=== PATIENT | male | born 1955 | race Caucasian/White ===

== ENCOUNTER 2020-01-07 00:45 | Day surgery (SDC) | payer MEDICARE, SELFPAY ==
[2019-12-29 14:27] VITALS: BMI 29.0
[2020-01-07] MEDS: LACTATED RINGERS 1,000 ML 30 ML IV CONT ×2 (08:05→11:05)
[2020-01-07 08:20] VITALS: BP 131/89; PULSE 74; RESP 16; TEMP 36.2; O2SAT 99
--- NOTE | 2020-01-07 08:34 | WPDANESEPPF ---
Anes - Initial Pre Proc Eval Procedure: Operation Date: 01/07/20 10:00 Proposed Procedures p Repair Incarcerated Umbilical Hernia, Possible Mesh - Russ Gipson MD Date/Time: 01/07/20 08:34 Surgeon: Russ Gipson MD Pre Op Diagnosis: incarcerated umbilical hernia Patient Data Age: 64 Gender: M Height: 1.68 m Weight: 80.5 kg Allergies Allergy/AdvReac Type Severity Reaction Status Date / Time No Known Allergies Allergy Verified 01/07/20 07:48 Home Medications Medication Instructions Recorded Confirmed Type hydrocodone-acetaminophen [[place]] 1 tablet PO Q6H PRN #14 tablet 12/27/19 01/07/20 Rx rosuvastatin 10 mg tablet 10 mg PO DAILY 12/28/19 01/07/20 History acetaminophen [Tylenol] 325 mg PO ONCE PRN 12/29/19 01/07/20 History Patient hx anesthesia problems: none Family hx anesthesia problems: none PMFSH Social History Social History Smoking status: Former smoker Smoking end date: 03/01/19 Alcohol intake: current Gender identity (if verbalized by the patient): Male Anes - Eval Final PreProcedure Day of Procedure 01/07/20 08:34 Patient weight: overweight Heart: regular rate and rhythm Lungs: clear to auscultation and normal air movement Airway: Mallampati scale class II Neurological: alert and oriented Last oral intake: >/= 8 hours ASA classification: II Emergent: no Anesthetic plan: proceed Anesthesia type and monitoring: general ETT Informed Consent: The patient's anesthetic plan and its attendant risks and benefits were discussed with the patient/family/POA. Questions were solicited and answers provided to the satisfaction of the patient/family/POA.
--- NOTE | 2020-01-07 09:46 | WPDHPUPDATE1 ---
History and Physical Update Update Date/Time: 01/07/20 09:46 History and Physical has been reviewed, including an updated exam of the patient. There are NO changes in the patient's condition. Risks, benefits, and alternatives have been discussed and questions answered. Patient agrees to proceed with procedure.
[2020-01-07] MEDS: ceFAZolin 2 GM/D5W 50 ML 2 GM/50 ML BAG IVPB (10:06)
--- NOTE | 2020-01-07 11:01 | P.OP_ITS ---
Procedure Note - Detailed Date of procedure: 01/07/20 Pre-op diagnosis: incarcerated umbilical hernia Incarcerated umbilical hernia Post-op diagnosis: same Procedure performed: Repair incarcerated umbilical hernia Description of procedure: Patient was taken to the operating room and IV sedation was administered. Prep and drape was carried out. The proposed incision along the upper margin of the umbilicus was marked on the skin. Local anesthetic was infiltrated into the skin and the deeper subcutaneous tissues. Incision was made and dissection was carried down through the skin and to the hernia sac. The hernia sac was hardened, edematous and chronically inflamed due to the incarcerated soft tissue within the sac. The sac was then dissected free from the umbilical skin and the surrounding subcutaneous tissues. It was dissected down to its neck. Additional local anesthetic was infiltrated into the neck and the fascia surrounding the neck of the hernia sac. The sac was then amputated at its neck. The incarcerated properitoneal fat in the hernia sac was also amputated at the fascial level. The sac and the incarcerated contents were discarded. The subcutaneous was undermined around the hernia d efect. Additional local was infiltrated around the fascia. The hernia defect was closed with [id number] mattress sutures of 0 Ethibond. The umbilical skin was tacked to the fascia with 3 0 Vicryl suture. The subcutaneous was closed with 3 0 Vicryl. Subcuticular interrupted 4 O Vicryl skin stitches were placed. The skin was then closed with running 4 0 Monocryl subcuticular suture. Wound was dressed with Exofin surgical adhesive. The patient was awakened and taken to recovery in good condition. Counts were correct x2. Anesthesia: GETA and local (0.5% Marcaine with Exparel) Surgeon: Russ Gipson MD Survey Superintendent: Abdirashid LIEBERMAN Estimated blood loss (mL): 5 Drains: No Packing: No Pathology: none sent Complications: None Condition: stable Disposition: PACU Findings: 10 millimeter hernia defect closed primarily due to the acute and chronic inflammation of this contaminated case. The defect was small and the surrounding fascial tissue was of good integrity.
[2020-01-07 11:05] VITALS: BP 148/99; PULSE 112; RESP 14; TEMP 36.4; O2SAT 100
[2020-01-07 11:15] VITALS: BP 143/94; PULSE 110; RESP 22; O2SAT 100
[2020-01-07 11:30] VITALS: BP 139/89; PULSE 99; RESP 20; O2SAT 98
[2020-01-07 11:36] VITALS: BP 131/80; PULSE 94; RESP 16
[2020-01-07 12:10] VITALS: BP 128/75; PULSE 83; RESP 16
--- NOTE | 2020-01-07 12:11 | SUR.PHASEII ---
ABDOMEN ENLARGED, SOFT. PT STATES THAT IT IS HIS BASELINE.
== END 2020-01-07 12:15 | disposition home or self-care (01) ==
PROVIDERS: PCP Internal Medicine; Visit Provider Surgery
PROC: (CPT 49587; principal; 2020-01-07 10:00)
DX: K42.0 Umbilical hernia with obstruction, without gangrene (principal); E78.00 Pure hypercholesterolemia, unspecified; Z87.891 Personal history of nicotine dependence
CPT/HCPCS: 49587; C9290; J0690; J1100; J2250; J2405; J2704; J2710; J3010; J7120

== ENCOUNTER 2020-10-18 11:08 | Emergency (ER) | payer MEDICARE, SELFPAY ==
--- NOTE | ~2020-10-18 | XR_ITS ---
XR lumbar spine min 4V DATE: 10/18/2020 11:51 INDICATION: Fell down 3 stairs. Centralized low back pain. TECHNIQUE: AP, lateral, bilateral oblique and coned lateral lumbosacral views COMPARISON: 12/27/2019 CT abdomen pelvis FINDINGS: There is interval mild anterior wedge compression fracture deformity of T12 since 12/27/2019 . Diffuse osteopenia. There is chronic burst fracture deformity of L2. There is severe degenerative disc disease and minimal retrolisthesis at L5-S1. Moderate degenerative disc disease at L2-3, L4-5. No spondylolysis. Grade 1 anterolisthesis at L4-5 due to degenerative changes at apophyseal joints. The sacroiliac joints are intact. IMPRESSION: New T12 compression fracture deformity since 12/27/2019 Reviewed, dictated and finalized at location B. [employer]
--- NOTE | ~2020-10-18 | XR_ITS ---
EXAMINATION: XR hand LT min 3V DATE: 10/18/2020 11:52 INDICATION: Left hand injury. TECHNIQUE: 4 views of left hand were obtained. COMPARISON: None. FINDINGS: There is a nondisplaced avulsion fracture of palmar base of fifth middle phalanx. 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 IMPRESSION: 1. Nondisplaced avulsion fracture of palmar base of fifth middle phalanx. Reviewed, dictated and finalized at location A. HEALTH NURSE EDUCATOR
[2020-10-18 11:24] VITALS: BP 136/88; PULSE 115; RESP 20; TEMP 36.1; O2SAT 93
--- NOTE | 2020-10-18 11:35 | PC.NURSE ---
Pt given urinal to collect urine sample.
--- NOTE | 2020-10-18 11:40 | ED.BACK ---
HPI - Back Pain/Injury General Chief Complaint: Back Pain/Injury Stated Complaint: fall, back pain Time Seen by Provider: 10/18/20 11:18 Source: RN notes reviewed History of Present Illness HPI Narrative: Patient presents emergency department from home for a fall. Patient states he fell yesterday afternoon. He states he fell onto his right side causing pain in his right lower back. He states he also injured his left hand with bruising around his left fifth digit. He notes that he bumped his head but denies any loss of consciousness and denies any blood thinner use. He denies any fever chills vision changes numbness or tingling the extremities chest pain shortness of breath abdominal pain nausea vomiting or any other symptoms he states he is taking no pain medication for the symptoms denies any hematuria Related Data Home Medications Medication Instructions Recorded Confirmed rosuvastatin 10 mg tablet 10 mg PO DAILY 12/28/19 02/07/20 Allergies Allergy/AdvReac Type Severity Reaction Status Date / Time No Known Allergies Allergy Verified 10/18/20 11:36 Review of Systems Review of Systems: Narrative: Gen.: Denies fevers or chills Eyes: Denies eye pain or visual change ENT: Denies congestion Respiratory: Denies shortness of breath or cough CV: Denies chest pain or palpitations GI: Denies abdominal pain nausea, emesis or diarrhea denies burning, urgency, frequency or hematuria Musculoskeletal: See HPI Neuro: Denies numbness, tingling, weakness or focal weakness Skin: Denies rash Except as documented, all other systems reviewed and negative PMFSH Past Medical History Medical History (Updated 10/18/20 @ 14:07 by Jacky Curtis DO) High cholesterol Surgical History Surgical History Hx of hemorrhoidectomy Surgical history unknown Umbilical hernia Social History Social History Smoking status: Former smoker Smoking end date: 03/01/19 Alcohol intake: current Gender identity (if verbalized by the patient): Male Exam Narrative: Exam Narrative: APPEARANCE: No acute distress, nontoxic, resting in bed EYES: EOMI, PERRL HEENT: Normocephalic, atraumatic, OMM Neck, supple, no midline tenderness palpation full range of motion without pain RESPIRATORY: No respiratory distress Clear to auscultation bilaterally with no rhonchi wheezing or rales. CARDIOVASCULAR: Regular rate and rhythm without murmurs rubs or gallops. ABDOMINAL: Soft, nontender, nondistended, no rebound or guarding MUSCULOSKELETAl: Moves all extremities. No clubbing, cyanosis or edema. Ecchymosis around the left fifth palmar digit at the base full flexion-extension of all 5 MCP and IP joints, capillary refill less than 3 seconds all 5 digits neurovascular intact Back: No midline thoracic lumbar tenderness palpation, tender palpation over right paravertebral muscles L3-5 no swelling or ecchymosis pain worse with rotation of the torso NEURO: Awake and alert. Following commands, speech normal, no focal deficits muscle strength 5 out of 5 bilateral upper and lower extremities SKIN:: Warm, dry. No rashes lesions or abrasions PSYCHIATRIC: Normal affect/mood, Course Course Emergency Course: Discussed with patient results of workup and diagnosis. Discussed need for follow-up with primary care, proper use of medication, and reasons to return to the emergency department. Patient understands and agrees to current treatment plan Vital Signs Vital signs: Vital Signs Temperature 97.0 F L 10/18/20 11:24 Pulse Rate 115 H 10/18/20 11:24 Respiratory Rate 20 10/18/20 11:24 Blood Pressure 136/88 10/18/20 11:24 Pulse Oximetry 93 10/18/20 11:24 Temperature 97.0 F L 10/18/20 11:24 Pulse Rate 115 H 10/18/20 11:24 Respiratory Rate 20 10/18/20 11:24 Blood Pressure 136/88 10/18/20 11:24 Pulse Oximetry 93 10/18/20 11:24
[2020-10-18] MEDS: HYDROcodone/acetaminophen (*CRX) 5-325 MG TABLET 1 TAB PO (11:54)
--- NOTE | 2020-10-18 11:55 | PC.NURSE ---
Pt unable to urinate at this time
--- NOTE | 2020-10-18 12:22 | PC.NURSE ---
Pt states unable to provide urine sample at this time, declined straight cath, states he will continue to try. Given urinal.
--- NOTE | 2020-10-18 13:10 | PC.NURSE ---
Pt continues to be unable to urinate at this time. EDP made aware
[2020-10-18 13:42] LABS: Add Urine Microscopic? YES; Appearance Urine Clear (Clear); Bilirubin Urine Negative (Negative); Blood Urine Negative (Negative); Color Urine Yellow (Yellow); Glucose Urine UA Negative (Negative); Ketones Urine Negative (Negative); Leukocyte Esterase Ur Negative LEU/UL (Negative); Mucus Urine Few /lpf; Nitrate Urine Negative (Negative); Protein Urine 1+ mg/dL (Negative); RBC Urine 0-2 /hpf (0-2); Specific Grav Ur 1.016 (1.001-1.035); Urobilinogen Urine Negative mg/dL (<2.0); WBC Urine 0-3 /hpf
[2020-10-18 14:20] VITALS: BP 145/95; PULSE 88; RESP 20; O2SAT 94
== END 2020-10-18 14:30 | disposition home or self-care (01) ==
PROVIDERS: Emergency Provider Emergency Medicine; PCP Internal Medicine
DX: S22.080A Wedge compression fracture of T11-T12 vertebra, initial encounter for closed fracture (principal); S62.657A Nondisplaced fracture of middle phalanx of left little finger, initial encounter for closed fracture; W19.XXXA Unspecified fall, initial encounter
CPT/HCPCS: 29130; 72110; 73130; 81001; 99284; A9270

== ENCOUNTER 2022-07-23 07:18 | Outpatient (CLI) | payer MEDICARE, SELFPAY ==
--- NOTE | ~2022-07-23 | PE_ITS ---
EXAMINATION: PET skull to mid thigh DATE: 07/23/2022 09:16 INDICATION: Lung nodules TECHNIQUE: Blood glucose level was 91 mg/dL. 10.916 mCi of 18-fluorodeoxyglucose (18-FDG) was adminis tered i.v. Low dose computed tomography (CT) images were acquired from the base of the brain to the p roximal thighs for attenuation correction and anatomic localization. Positron emission tomography (PE T) images were acquired in the same distribution beginning 55 minutes after injection. The dose-lengt h product (DLP) was 967.85 mGy-cm. COMPARISON: 12/27/2019 FINDINGS: Head/neck: There is moderate FDG uptake in the oral cavity and vocal cords without suspicious CT jena elate, likely physiologic. Some apparent FDG uptake may also be due to attenuation correction errors caused by dental hardware. Chest: There is a 1.6 x 1.5 cm part solid nodule in the left upper lobe without significant FDG uptak e. There is mild emphysema. No pleural effusion or pneumothorax. No pathologically enlarged thoracic lymph nodes are identified. The heart size is normal. There is mild asymmetric gynecomastia on the le ft. Calcified coronary artery atherosclerosis is noted. Abdomen/pelvis/proximal thighs: No abnormal FDG uptake is identified. Physiologic FDG activity is pre sent in the bowel and urinary tract. The liver, spleen, pancreas, gallbladder, and adrenal glands are normal. The kidneys are unremarkable. No pathologically enlarged abdominal or pelvic lymph nodes are identified. There is no free intraperitoneal gas or evidence of bowel obstruction. There is calcifie d atherosclerosis of the aorta and many of the other arteries. Colonic diverticulosis is present with out evidence of diverticulitis. Musculoskeletal: No abnormal FDG uptake is identified. There is a chronic burst fracture of L2. There is an age-indeterminate compression fracture of T12. IMPRESSION: 1. 1.6 cm part solid nodule of the left upper lobe without significant associated FDG uptake. Finding could be related to small size of the solid nodular components. Follow-up low-dose CT in six months is recommended as minimally invasive adenocarcinoma could have this appearance. Reviewed, dictated and finalized at location B. IMPRESSION: 1. 1.6 cm part solid nodule of the left upper lobe without significant associat ed FDG uptake. Finding could be related to small size of the solid nodular comp onents. Follow-up low-dose CT in six months is recommended as minimally invasiv e adenocarcinoma could have this appearance.
[2022-07-23 07:54] LABS: Glucose Point of Care 91 mg/dl (65-105)
== END 2022-07-23 07:19 | disposition home or self-care (01) ==
PROVIDERS: PCP Internal Medicine; Visit Provider Internal Medicine
DX: R91.8 Other nonspecific abnormal finding of lung field (principal)
CPT/HCPCS: 78815; A9552

== ENCOUNTER 2022-11-27 13:54 | Outpatient (CLI) | payer MEDICARE, SELFPAY ==
--- NOTE | ~2022-11-27 | MR_ITS ---
MRI of the lumbar spine Clinical History: Back pain Technique: Axial T2-weighted images, and sagittal T1-weighted, T2-weighted, and T2 fat-sat images wer e acquired. Findings: There are chronic compression fracture deformities of T12 and L2, without marrow edema. The re is minimal retropulsion of the vertebral bodies. No focal or suspicious bone marrow signal abnorma lity seen. No acute fracture identified. At L1-L2, there is no disc bulge or herniation. There is no spinal canal stenosis. There is probable mild bilateral neural foraminal narrowing, largely related to the mild retropulsion. At L2-L3, there is no disc bulge or herniation. Minimal facet arthropathy present. No spinal canal st enosis. There is mild to moderate bilateral neural foraminal narrowing, again largely probably relate d to retropulsion. At L3-L4, there is no significant disc bulge or herniation. There is moderate facet joint arthropathy . No barbra spinal canal stenosis. There is mild left neural foraminal narrowing. Right neural foramen preserved. At L4-L5, disc bulge and facet arthropathy result in severe thecal sac compression. There is moderate to advanced bilateral neural foraminal narrowing. At L5-S1, there is severe degenerative disc narrowing, with possible partial fusion across the disc s pace. No definite disc bulge is evident. No spinal canal stenosis. There is moderate bilateral neural foraminal narrowing. Paravertebral soft tissues are unremarkable. Impression: Chronic compression fractures of T12 and L2. No acute fracture. Multifactorial severe thecal sac compression at L4-L5, with moderate to advanced bilateral neural for aminal narrowing at this level. Additional bilateral neural foraminal narrowing at the remaining lumbar levels, as detailed above, wo rst at L2-L3 and L5-S1. Reviewed, dictated and finalized at [facility]. PUNCHING MACHINE OPERATOR Impression: Chronic compression fractures of T12 and L2. No acute fracture. Multifactorial severe thecal sac compression at L4-L5, with moderate to advance d bilateral neural foraminal narrowing at this level. Additional bilateral neural foraminal narrowing at the remaining lumbar levels, as detailed above, worst at L2-L3 and L5-S1.
== END 2022-11-27 13:55 | disposition home or self-care (01) ==
PROVIDERS: PCP Internal Medicine; Visit Provider Internal Medicine
DX: M54.50 Low back pain, unspecified (principal)
CPT/HCPCS: 72148

== ENCOUNTER 2023-03-11 13:16 | Outpatient (CLI) | payer MEDICARE, SELFPAY ==
--- NOTE | ~2023-03-11 | PE_ITS ---
EXAMINATION: PET skull to mid thigh DATE: 03/11/2023 15:24 INDICATION: Solitary pulmonary nodule. TECHNIQUE: Blood glucose level was 96 mg/dL. 11.774 mCi of 18-fluorodeoxyglucose (18-FDG) was adminis tered i.v. Low dose computed tomography (CT) images were acquired from the base of the brain to the p roximal thighs for attenuation correction and anatomic localization. Automated exposure control was e mployed. Dose-length product (DLP) was 774 mGy-cm. Positron emission tomography (PET) images were acq uired in the same distribution. COMPARISON: PET/CT 07/23/2022 FINDINGS: Head/neck: There are no pathologically enlarged lymph nodes. Chest: There is mild emphysema. There is mild atelectasis in the lungs. There is an 8 mm part solid n odule in left upper lobe with maximum SUV of 3.6. For reference, the normal liver activity has a maxi mum SUV of 4.5. No pleural effusion. The heart size is normal. There are coronary artery calcificatio ns. No pericardial effusion. There is left-sided gynecomastia. Abdomen/pelvis/proximal thighs: The liver, gallbladder, spleen, pancreas, adrenal glands, and kidneys are normal. There is a left inguinal hernia containing fat. There is diverticulosis of the colon wit hout evidence of diverticulitis. There are no dilated loops of bowel. There are no pathologically enl arged lymph nodes. There is no free intraperitoneal fluid. There is calcified atherosclerosis of the aorta and many of the other arteries. There is no osseous malignancy. IMPRESSION: 1. Stable 8 mm pulmonary nodule without significantly increased activity, likely benign. Noncontrast low-dose chest CT is recommended in one year. 2. Mild emphysema. Reviewed, dictated and finalized at location A. IMPRESSION: 1. Stable 8 mm pulmonary nodule without significantly increased activity, likel y benign. Noncontrast low-dose chest CT is recommended in one year. 2. Mild emphysema.
[2023-03-11 13:48] LABS: Glucose Point of Care 96 mg/dl (65-105)
== END 2023-03-11 13:17 | disposition home or self-care (01) ==
PROVIDERS: PCP Internal Medicine; Visit Provider Internal Medicine Pulmonary Disease
DX: R91.1 Solitary pulmonary nodule (principal)
CPT/HCPCS: 78815; A9552

== ENCOUNTER 2025-04-14 09:58 | Outpatient (CLI) | payer MEDICARE, SELFPAY ==
--- OUTSIDE RECORDS SUMMARY | 2025-04-14 10:05 | XMS_ITS | Data Portability ---
Author Organization [place] [facility] [employer], Main Office Address [address] [place] [address] Assessment Encounter Date Assessment Date Assessment LastModified by Organization Details LastModified Time 03/23/2024 03/23/2024 Assessment: Nicotine smoke: 1 ppd 0125-0499 = 28 pack years Mod ACO SHARON nodule 1.2 Coccidioides abs IgG (equivocal) Plan: The following were reviewed and explained to the patient: PET/CT 07/23/22 16 mm SHARON nodule without FDG uptake PET/CT 03/11/23 8 mm SHARON nodule with SUV 3.[address] 07/09/22 10.4 x 13 x 12 mm SHARON cavitary nodule Chest CT 02/07/23 13.8 mm SHARON cavitary nodule Chest CT 02/19/24 14 mm SHARON spiculated nodule Lab data 02/27/23 high Anti SS-A 52KD abs, 1.2 Coccidioides abs IgG PFT 04/02/23 FEV1 0.94 L (54%), BD 180 mL = 23% PFT 02/19/24 FEV1 1.27 L (69%), BD 250 mL = 24% Differential diagnoses for pulmonary nodule: 1. malignant tumor 2. benign tumor 3. inflammatory processes 4. infectious process (viral, atypical bacterial, fungal, atypical mycobacterial) The Fleischner Society pulmonary nodule recommendations below pertain to the follow-up and management of indeterminate pulmonary nodules detected incidentally on CT and are published by the Fleischner Society. The guideline does not apply to lung cancer screening, patients younger than 35 years, or patients with a history of primary cancer or immunosuppression. These recommendations reflect the 2017 revision 4, which supersedes prior versions published in 2005 and 2013. Single solid nodule <6 mm (<100 mm3) *low-risk patients: no routine follow-up required *high-risk patients: optional CT at 12 months (particularly with suspicious nodule morphology and/or upper lobe location) Single solid nodule 6-8 mm (100-250 mm3) *low-risk patients: CT at 6-12 months, then consider CT at 18-24 months *high-risk patients: CT at 6-12 months, then CT at 18-24 months Single solid nodule >8 mm (>250 mm3) *low-risk and high-risk patients: consider CT at 3 months, PET/CT, or tissue sampling PET/CT scan JERO. Advised to continue not to smoke. Stiolto Respimat 2.5/2.5 mg is not covered. Continue Anoro Ellipta 62.5/25 mcg 1 inhalation daily. Continue albuterol HFA as needed. The patient does not know how to accurately administer the inhalers. Today, the patient was shown how to take these medications. The proper technique for delivering these medications was instructed. The patient expressed a clear understanding and demonstrated back how to use these medications. Without the proper technique, the patient will not reap the benefits of these medications as the contents will not reach the lower airways as intended to be. Adherence to therapy is advocated. Nonadherence may lead to treatment failure, further progression of the condition, and other complications. Hospitals admissions are often the result of individuals not taking prescription medications accurately. Alternatively, greater adherence to medication regimens have shown to lower rates of hospitalization and decrease total medical costs in patients with chronic medical conditions. Advocated influenza vaccination annually and pneumonia vaccination JERO. Advocated weight loss through diet and exercise. Patient's ideal body weight according to height and gender is up to 140 lbs. Encouraged patient to adjust caloric intake to maintain/achieve ideal body weight, emphasizing on fruits, vegetables, whole grains, and fat-free or low-fat products. These include lean meats, poultry, fish, beans, eggs, and nuts and foods that are low in saturated fats, trans-fats, cholesterol, salt (sodium), and glycemic index. Stressed the importance of regular exercise up to the patient's capacity limits. In this case, we recommend 20 min daily walking, 2 days a week of resistance training. Patient to monitor BP daily and bring records to PCP for further management. Follow-up: 1 week after PET/CT scan [email or web address] Not available 03/23/2024 13:09:13 04/07/2025 04/07/2025 Assessment: Nicotine smoke: 1 ppd 2337-6804 = 28 pack years Mod ACO SHARON nodule 1.2 Coccidioides abs IgG (equivocal) Plan: The following were reviewed and explained to the patient: PET/CT 07/23/22 16 mm SHARON nodule without FDG uptake PET/CT 03/11/23 8 mm SHARON nodule with SUV 3.[address] 07/09/22 10.4 x 13 x 12 mm SHARON cavitary nodule Chest CT 02/07/23 13.8 mm SHARON cavitary nodule Chest CT 02/19/24 14 mm SHARON spiculated nodule Lab data 02/27/23 high Anti SS-A 52KD abs, 1.2 Coccidioides abs IgG PFT 04/02/23 FEV1 0.94 L (54%), BD 180 mL = 23% PFT 02/19/24 FEV1 1.27 L (69%), BD 250 mL = 24% Differential diagnoses for pulmonary nodule: 1. malignant tumor 2. benign tumor 3. inflammatory processes 4. infectious process (viral, atypical bacterial, fungal, atypical mycobacterial) The Fleischner Society pulmonary nodule recommendations below pertain to the follow-up and management of indeterminate pulmonary nodules detected incidentally on CT and are published by the Fleischner Society. The guideline does not apply to lung cancer screening, patients younger than 35 years, or patients with a history of primary cancer or immunosuppression. These recommendations reflect the 2017 revision 4, which supersedes prior versions published in 2005 and 2013. Single solid nodule <6 mm (<100 mm3) *low-risk patients: no routine follow-up required *high-risk patients: optional CT at 12 months (particularly with suspicious nodule morphology and/or upper lobe location) Single solid nodule 6-8 mm (100-250 mm3) *low-risk patients: CT at 6-12 months, then consider CT at 18-24 months *high-risk patients: CT at 6-12 months, then CT at 18-24 months Single solid nodule >8 mm (>250 mm3) *low-risk and high-risk patients: consider CT at 3 months, PET/CT, or tissue sampling PET/CT scan and complete PFT JERO. Advised to continue not to smoke. Stiolto Respimat 2.5/2.5 mg is not covered. Continue Anoro Ellipta 62.5/25 mcg 1 inhalation daily. Continue albuterol HFA as needed. The patient does not know how to accurately administer the inhalers. Today, the patient was shown how to take these medications. The proper technique for delivering these medications was instructed. The patient expressed a clear understanding and demonstrated back how to use these medications. Without the proper technique, the patient will not reap the benefits of these medications as the contents will not reach the lower airways as intended to be. Adherence to therapy is advocated. Nonadherence may lead to treatment failure, further progression of the condition, and other complications. Hospitals admissions are often the result of individuals not taking prescription medications accurately. Alternatively, greater adherence to medication regimens have shown to lower rates of hospitalization and decrease total medical costs in patients with chronic medical conditions. Advocated influenza vaccination annually and pneumonia vaccination JERO. Advocated weight loss through diet and exercise. Patient's ideal body weight according to height and gender is up to 140 lbs. Encouraged patient to adjust caloric intake to maintain/achieve ideal body weight, emphasizing on fruits, vegetables, whole grains, and fat-free or low-fat products. These include lean meats, poultry, fish, beans, eggs, and nuts and foods that are low in saturated fats, trans-fats, cholesterol, salt (sodium), and glycemic index. Stressed the importance of regular exercise up to the patient's capacity limits. In this case, we recommend 20 min daily walking, 2 days a week of resistance training. Patient to monitor BP daily and bring records to PCP for further management. Follow-up: 1 week after PET/CT scan and PFT [email or web address] Not available 04/07/2025 11:15:47 Plan of Treatment Reminders Order Date Submit Date Provider Last Modified By Organization Details Last Modified Time Details Appointments Any 15 2024 01:30P M Jass Jacobs MD Not available Not available Not available Lab PSA, serum or plasma 2024 025 [email or web address] [facility] - Out[facility] Lab, [address] [place], [address], 01/26/2025 12:46:01 CBC w/ auto diff 2024 025 [facility] - Outpatient Lab, [address] [place], [address], 01/26/2025 11:53:11 lipid panel, serum [address] [facility], [address] [place], [address], 01/26/2025 11:46:15 CMP, serum or plasma [address] [facility], [address] [place], [address], 01/26/2025 11:46:32 CBC w/ auto diff [address] Outpatient Lab, [address] [place], [address], 08/18/2024 07:55:18 lipid panel, serum [address] Lab, [address] [place], [address], 08/18/2024 07:55:18 CMP, serum or plasma [address] Outpatient Lab, [address] [place], [address], 08/18/2024 07:55:18 Referral None recorded. Procedures injection /aspirati on joint/bur sa (PROC) 2023 024 [email or web address] In-Office Order, Internal Use Only DO Not Attach Compendium DO Not Attach Compendium, Do Not Delete/merge, [id number] 04/19/2024 12:12:08 Surgeries None recorded. Imaging PET-CT, skull base to mid-thigh scan - 14 mm SHARON spiculate d nodule; approved [id number] 0 03/24/24-1 2024 025 [facility], [address], [place], [address], 04/14/2025 04:20:59 XR, hand, 3 or more view 2023 024 [facility], [address], [place], [address], 04/19/2024 17:22:09 PET-CT, skull base to mid-thigh scan - 14 mm SHARON spiculate d nodule; approved [id number] 0 03/24/24-1 2023 [email or web address] [place] [address], [address] [place] [address] [address], [place], [address], 04/06/2024 09:35:45 Medication Orders albuterol sulfate HFA 90 mcg/actua tion aerosol inhaler 2024 025 [id number], [address], [place], [place], [id number], 04/07/2025 11:07:29 Anoro Ellipta 62.5 mcg-25 mcg/actua tion powder for inhalatio n 2024 025 [facility]86360, [address], [place], [place], [id number], 04/07/2025 11:07:12 fluticaso ne propionat e 50 mcg/actua tion nasal spray,elver pension 2024 025 [facility]03376, [address], [place], [place], [id number], 01/04/2025 15:19:43 fexofenad ine 60 mg tablet 2024 025 [facility] #29417, [address], [place], [place], [id number], 01/04/2025 17:06:[address] 10 mg tablet 2024 025 [facility] #80625, [address], [place], [place], [id number], 01/04/2025 15:22:35 rosuvasta tin 10 mg tablet 2024 025 [facility] #13401, [address], [place], [place], [id number], 01/04/2025 15:19:[address] 10 mg tablet [address] [facility]20683, [address] , [place], [place], [id number], 07/14/2024 08:28:10 fluticaso ne propionat e 50 mcg/actua tion nasal spray,[facility] pension [address] [facility]27996, [address], [place], [place], [id number], 07/14/2024 08:28:10 bupivacai ne HCl 0.5 % (5 mg/mL) injection solution [address] [facility]21836, [address] [place], [place], [id number], 07/13/2024 14:52:29 Kenalog 10 mg/mL suspensio n for injection [address] [facility]89229, [address] [place], [place], [id number], 07/13/2024 14:52:32 albuterol sulfate HFA 90 mcg/actua tion aerosol inhaler 2023 024 [facility] #84910, [address], [place], [place], [id number], 03/23/2024 13:05:56 Anoro Ellipta 62.5 mcg-25 mcg/actua tion powder for inhalatio n 2023 024 [facility], [address], [place], [place], [id number], 03/23/2024 13:07:18 Patient TargetsNo targets recorded. Patient Instructions Encounter Date Encounter Id Patient Instructions Last Modified By Organization Details Last Modified Time 04/19/2024 [id number] 69-year-old male presents for evaluation of his right hand. He reports pain thumb. He reports he has had a few falls recently, and he thinks that is what caused the locking up the finger. Straight when it does lock up. He also has pain at night which disrupts sleep. He has been wearing a Alumafoam splint on the finger, has not had any other treatments. He is right-hand dominant. He is retired. Review of systems per patient questionnaire Physical exam: He has tenderness palpation over the A1 mulu of the ring finger. He does have triggering and he has to manually extend his finger when it gets stuck. He also has tenderness to palpation at the thumb MCP joint, positive grind. 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 We will begin with a course of conservative management. We provided him with a thumb spica brace to use. We also offered a cortisone injection for his ring trigger finger, which she elected to proceed with. We will see him back as needed. We discussed next step would be to do a trigger finger release his if he continues have symptoms. [email or web address] Not available 04/19/2024 16:55:14 04/07/2025 [id number] complete PFT w/ post bronchodilator spirometry* - Please call patient to schedule. RAYSHAWN [id number] per payor website. SANDRA Not available 04/14/2025 09:35:42 Reason for Referral None Reported. Results Created Date Observation Date Name Description Value Unit Range Abnormal Flag Note LastModifiedBy Organization Detail LastModifiedTime 01/26/20 25 01/26/2025 LIPID PANEL cholesterol 121 mg/dL 140-19 9 low NIH AMPARO NSUS RECOM MENDA TION FOR CHANA STERO L: ADULT CHILD LOW RISK: <200 <170 BORDE RLINE : <200- 239 ----- HIGH RISK: >240 >200 Not Available [facility] (Lab) [address] [place], [address], 01/26/2025 11:46:15 01/26/20 25 01/26/2025 LIPID PANEL triglyceride s 55 mg/dL 0-150 NIH AMPARO NSUS REPOR T RECOM MENDA TION FOR TRIGL YCERI ROGER: ADULT CHILD LOW RISK: <150 ----- BODER LINE: 150-1 99 ----- HIGH RISK: >200 ----- Not Available [facility] (Lab) [address] [place], [address], 01/26/2025 11:46:15 01/26/20 25 01/26/2025 LIPID PANEL HDL cholesterol 68 mg/dL 40- Not Available [facility] (Lab) [address] [place], [address], 01/26/2025 11:46:15 01/26/20 25 01/26/2025 LIPID PANEL LDL cholesterol, calculated 42 mg/dL 0-130 NIH AMPARO NSUS REPOR T RECOM MENDA TIONS FOR LDL: ADULT CHILD LOW RISK <130 <110 (OPTI MAL LDL) <100 ----- BORDE RLINE : 130-1 59 ----- HIGH RISK: >160 >130 A TRIGL YCERI DE RESUL T >400 INVAL IDATE S THE CALCU LATIO N FOR LDL FRACT IONAT ION - THE LDL RESUL T WILL NOT BE REPOR JORDAN. Not Available [facility] (Lab) [address] [place], [address], 01/26/2025 11:46:15 01/26/20 25 01/26/2025 COMPR EHENS [place] METAB OLIC PANEL sodium 140 mmol/ L 137-14 5 Not Available [facility] (Lab) [address] [place], [address], 01/26/2025 11:46:32 01/26/20 25 01/26/2025 COMPR EHENS [place] METAB OLIC PANEL potassium 3.8 mmol/ L 3.5-5. 1 Not Available [facility] (Lab) [address] [place], [address], 01/26/2025 11:46:32 01/26/20 25 01/26/2025 COMPR EHENS [place] METAB OLIC PANEL chloride 106 mmol/ L 98-107 Not Available [facility] (Lab) [address] [place], [address], 01/26/2025 11:46:32 01/26/20 25 01/26/2025 COMPR EHENS [place] METAB OLIC PANEL carbon dioxide 29 mmol/ L 22-30 Not Available [facility] (Lab) [address] [place], [address], 01/26/2025 11:46:32 01/26/20 25 01/26/2025 COMPR EHENS [place] METAB OLIC PANEL anion gap 8.8 mmol/ L 14-22 low Not Available [facility] (Lab) [address] [place], [address], 01/26/2025 11:46:32 01/26/20 25 01/26/2025 COMPR EHENS DALALS METAB OLIC PANEL glucose 100 mg/dL 70-99 high Not Available [facility] (Lab) [address] [place], [address], 01/26/2025 11:46:32 01/26/20 25 01/26/2025 COMPR EHENS [place] METAB OLIC PANEL BUN 18 mg/dL 8-19 Not Available [facility] (Lab) [address] [place], [address], 01/26/2025 11:46:32 01/26/20 25 01/26/2025 COMPR EHENS [place] METAB OLIC PANEL creatinine 1.10 mg/dL 0.66-1 .25 Not Available [facility] (Lab) [address] [place], [address], 01/26/2025 11:46:32 01/26/20 25 01/26/2025 COMPR EHENS [place] METAB OLIC PANEL GFR >60 Refer ence Range : [place] ge GFR Healt hy Adult : >60 mL/mi n/1.7 3 m2 Chron ic Kidne y Disea se: 15-60 mL/mi n/1.7 3 m2 Kidne y Failu re: <15/m L/min /1.73 m2 www.n iddk. nih.g ov The MDRD study equat ion has not been valid ated in child kirk <18 years of age; pregn ant women ; the elder ly >85 years of age; or in some racia l or ethni c subgr oups, such as Hispa nics. Outsi de the valid ated aurelia eters , estim ated GFR is less accur ate, requi ring clini yoel judgm ent on a case- by-ca se basis . Clini yoel inter preta tion for other races and ages must be made by the clini darryl. The MDRD study equat ion has not been valid ated for the evalu ation of serum creat inine relat ed to nutri jessica l statu s or medic ation usage . For perso ns <18 years of age, a pedia tric GFR calcu lator is avail able on the [facility] websi te: https ://antonieta liang.lamont esteban/pr ofess ional s/kdo qi/gf r_cal culat or Not Available [facility] (Lab) [address] [place], [address], 01/26/2025 11:46:32 01/26/2001/26/2025 COMPR EHENS D[place] METAB OLIC PANEL alkaline phosphatase 69 U/L 38-126 Not Available [facility] (Lab) [address] [place], [address], 01/26/2025 11:46:32 01/26/20 25 01/26/2025 COMPR EHENS DALLAS METAB OLIC PANEL alanine aminotransfe rase 20 U/L 0-50 Not Available [facility] (Lab) [address] [place], [address], 01/26/2025 11:46:32 01/26/20 25 01/26/2025 COMPR EHENS D[place] METAB OLIC PANEL aspartate aminotransfe rase 26 U/L 15-46 Not Available [facility] (Lab) [address] [place], [address], 01/26/2025 11:46:32 01/26/20 25 01/26/2025 COMPR EHENS D[place]AS METAB OLIC PANEL bilirubin, total 0.80 mg/dL 0.20-1 .30 Not Available [facility] (Lab) [address] [place], [address], 01/26/2025 11:46:32 01/26/20 25 01/26/2025 COMPR EHENS D[place]AS METAB OLIC PANEL calcium 9.3 mg/dL 8.4-10 .2 Not Available [facility] (Lab) [address] [place], [address], 01/26/2025 11:46:32 01/26/20 25 01/26/2025 COMPR EHENS D[place]AS METAB OLIC PANEL total protein 7.2 g/dL 6.3-8. 2 Not Available [facility] (Lab) [address] [place], [address], 01/26/2025 11:46:32 01/26/20 25 01/26/2025 COMPR EHENS D[place] METAB OLIC PANEL albumin 4.3 g/dL 3.0-4. 4 Not Available [facility] (Lab) [address] [place], [address], 01/26/2025 11:46:32 01/26/20 25 01/26/2025 COMPR EHENS DALLAS METAB OLIC PANEL globulin 2.9 g/dL 2.6-4. 2 Not Available [facility] (Lab[facility] [address] [facility] [place], [address], 01/26/2025 11:46:32 01/26/20 25 01/26/2025 COMPR EHENS [place] METAB OLIC PANEL A/G ratio 1.5 ratio 1.0-2. 0 Not Available [facility] (Lab) [address] [facility] [place], [address], 01/26/2025 11:46:32 01/26/20 25 01/26/2025 CBC/C OMPLE TE BLD COUNT W/DIF F white blood cells 6.4 x10'3 /uL 4.2-10 .8 Not Available [facility] (Lab) [address] [place], [address], 01/26/2025 11:53:11 01/26/20 25 01/26/2025 CBC/C OMPLE TE BLD COUNT W/DIF F red blood cells 4.68 x10'6 /uL 4.10-5 .80 Not Available [facility] (Lab) [address] [place], [address], 01/26/2025 11:53:11 01/26/20 25 01/26/2025 CBC/C OMPLE TE BLD COUNT W/DIF F hemoglobin 15.2 g/dL 13.2-1 7.0 Not Available [facility] (Lab) [address] [place], [address], 01/26/2025 11:53:11 01/26/20 25 01/26/2025 CBC/C OMPLE TE BLD COUNT W/DIF F hematocrit 46.6 % 39.3-5 0.0 Not Available [facility] (Lab) [address] [place], [address], 01/26/2025 11:53:11 01/26/20 25 01/26/2025 CBC/C OMPLE TE BLD COUNT W/DIF F mean red cell volume 99.6 fL 80.0-9 7.0 high Not Available [facility] (Lab) [address] [facility] [place], [address], 01/26/2025 11:53:11 01/26/20 25 01/26/2025 CBC/C OMPLE TE BLD COUNT W/DIF F mean red cell hemoglobin 32.5 pg 27.0-3 3.0 Not Available [facility] (Lab) [address] [place], [address], 01/26/2025 11:53:11 01/26/20 25 01/26/2025 CBC/C OMPLE TE BLD COUNT W/DIF F mean RBC HGB concentratio n 32.6 g/dL 31.0-3 6.0 Not Available [facility] (Lab) [address] [place], [address], 01/26/2025 11:53:11 01/26/20 25 01/26/2025 CBC/C OMPLE TE BLD COUNT W/DIF F red cell distribution width 12.4 % 11.8-1 5.5 Not Available [facility] (Lab) [address] [place], [address], 01/26/2025 11:53:11 01/26/20 25 01/26/2025 CBC/C OMPLE TE BLD COUNT W/DIF F platelets 287 x10'3 /uL 150-40 0 Not Available [facility] (Lab) [address] [place], [address], 01/26/2025 11:53:11 01/26/20 25 01/26/2025 CBC/C OMPLE TE BLD COUNT W/DIF F mean platelet volume 9.5 fL 9.0-12 .4 Not Available [facility] (Lab) [address] [place], [address], 01/26/2025 11:53:11 01/26/20 25 01/26/2025 CBC/C OMPLE TE BLD COUNT W/DIF F neutrophils 59.8 % 39.0-7 2.0 Not Available [facility] (Lab) [address] [place], [address], 01/26/2025 11:53:11 01/26/20 25 01/26/2025 CBC/C OMPLE TE BLD COUNT W/DIF F lymphocytes 23.7 % 16.0-4 7.0 Not Available [facility] (Lab) [address] [place], [address], 01/26/2025 11:53:11 01/26/20 25 01/26/2025 CBC/C OMPLE TE BLD COUNT W/DIF F monocytes 13.0 % 5.0-12 .0 high Not Available [facility] (Lab) [address] [place], [address], 01/26/2025 11:53:11 01/26/2001/26/2025 CBC/C OMPLE TE BLD COUNT W/DIF F eosinophils 2.4 % 1.0-7. 0 Not Available [facility] (Lab) [address] [place], [address], 01/26/2025 11:53:11 01/26/20 25 01/26/2025 CBC/C OMPLE TE BLD COUNT W/DIF F basophils 0.8 % 0.0-2. 0 Not Available [facility] (Lab) [address] [place], [address], 01/26/2025 11:53:11 01/26/20 25 01/26/2025 CBC/C OMPLE TE BLD COUNT W/DIF F immature granulocytes 0.3 % 0.00-0 .50 Not Available [facility] (Lab) [address] [place], [address], 01/26/2025 11:53:11 01/26/20 25 01/26/2025 CBC/C OMPLE TE BLD COUNT W/DIF F neutrophils, absolute count 3.82 x10'3 /uL 1.5-8. 0 Not Available [facility] (Lab) [address] [place], [address], 01/26/2025 11:53:11 01/26/20 25 01/26/2025 CBC/C OMPLE TE BLD COUNT W/DIF F lymphocytes, absolute count 1.51 x10'3 /uL 1.07-3 .43 Not Available [facility] (Lab) [address] [place], [address], 01/26/2025 11:53:11 01/26/20 25 01/26/2025 CBC/C OMPLE TE BLD COUNT W/DIF F monocytes, absolute count 0.83 x10'3 /uL 0.29-0 .99 Not Available [facility] (Lab) [address] [place], [address], 01/26/2025 11:53:11 01/26/20 25 01/26/2025 CBC/C OMPLE TE BLD COUNT W/DIF F eosinophils, absolute count 0.15 x10'3 /uL 0.02-0 .53 Not Available [facility] (Lab) [address] [place], [address], 01/26/2025 11:53:11 01/26/2001/26/2025 CBC/C OMPLE TE BLD COUNT W/DIF F basophils, absolute count 0.05 x10'3 /uL 0.01-0 .08 Not Available [facility] (Lab) [address] [place], [address], 01/26/2025 11:53:11 01/26/20 25 01/26/2025 CBC/C OMPLE TE BLD COUNT W/DIF F immature granulocytes ,absolute 0.02 x10'3 /uL 0.00-0 .05 Not Available [facility] (Lab) [address] [place], [address], 01/26/2025 11:53:11 01/26/20 25 01/26/2025 CBC/C OMPLE TE BLD COUNT W/DIF F nucleated red blood cells 0.0 % -0 Not Available [facility] (Lab) [address] [place], [address], 01/26/2025 11:53:11 01/26/20 25 01/26/2025 CBC/C OMPLE TE BLD COUNT W/DIF F NRBC# 0.00 x10'3 /uL Not Available [facility] (Lab) [address] [place], [address], 01/26/2025 11:53:11 01/26/20 25 01/26/2025 PSA SCREE N PSA medicare screen 0.73 NG/mL 0.00-4 .00 Not Available [facility] (Lab) [address] [place], [address], 01/26/2025 12:17:43 04/19/20 24 XR, hand, 3 or more view No observ ation record ed. [email or web address] s_[email or web address] Clear [facility] [id number] [facility], [place], [address], 04/19/2024 11:37:07 04/14/20 25 04/13/2025 compl ete PFT w/ post [facility] hodil ator parveen metry * No observ ation record ed. [facility] ([facility]) [address] [place], [address], 04/14/2025 09:35:42 Result Notes None recorded. Problems Name Problem SNOMED Code Status Onset Date Resolution Date Notes Provider Name and Address Organization Details Recorded Time Chronic back pain 592020389 Active 2021 Not Available [employer] 05:23:59 Obesity 338753577 Active 2021 Not Available [employer] 3 05:23:59 Hyperlipidemi a 97290009 Active 2021 Not Available [facility] 3 05:23:59 Marijuana user 007372083 Active 2021 Not Available [facility] 3 05:23:59 Solitary nodule of lung 253960713 Active 2022 Zak Vallejo MD [address], [place], [address] , [employer] 5 11:06:08 Moderate chronic obstructive pulmonary disease 375731810 Active 2022 Zak Vallejo MD [address], [place], [address] , [employer] 5 11:05:40 Rhinitis 57312054 Active 2023 Zak Vallejo MD [address], [place], [address] , [employer] 5 11:05:53 Notes:Medical History: Rhini tis with postnasal drip Marijuana use Ex-nicotine use Mod ACO in pulm rehab 2022 SHARON cavitary nodule High Anti SS-A 52KD abs 1.2 Coccidioides abs IgG Obesity Hyperlipidemia MATEO Cervicothoracic DDD T10, T12, L2 compression fractures Procedure History: Umbilical herniorrhaphy 2019 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 Procedures Surgical History Date Name Laterality Status Provider Name and Address Organization Details Recorded Time 4 Ortho - Cortisone Injection completed Tarun Rey MD [address], [place], [address], [employer] 04/19/2024 16:52:44 3 Medicare Wellness CPT Code, subsequent completed Aleida Adkins LPN [employer] 11/11/2023 15:53:12 Imaging Results Imaging Date Name Status LastModified by Organization Details LastModified Time 04/19/2024 XR, hand, 3 or more view [email or web address] [id number] [facility], [place], [address], 04/19/2024 11:37:07 04/13/2025 complete PFT w/ post bronchodilator spirometry* completed [facility] ([facility]) [address] Constantino, [place], [address], 04/14/2025 09:35:42 Procedure Notes None recorded. Medical Equipment None Reported. Allergies No known drug allergies Medications Name Sig Start Date Stop Date Status Note LastModified by Organization Details LastModified Time fexofenadin e 60 mg tablet TAKE 1 TABLET BY MOUTH TWICE DAILY active Not Available Not Available No t Available ibuprofen 800 mg tablet TAKE 1 TABLET BY MOUTH THREE TIMES DAILY NEEDED 11/11 completed Not Available Not Available Not Available bupivacaine HCl 0.5 % (5 mg/mL) injection solution in office 07/13 completed Not Available Not Available Not Available meloxicam 7.5 mg tablet TAKE 1 TABLET BY MOUTH TWICE DAILY 01/28 completed Not Available Not Available Not Available Kenalog 10 mg/mL suspension for injection in office 07/13 completed [facility]: 0003- 0494- 20 Not Available Not Available Not Available montelukast 10 mg tablet TAKE 1 TABLET BY MOUTH EVERY DAY active Not Available Not Available No t Available methylpredn isolone 4 mg tablets in a dose pack USE DIRECTED 02/14 completed Not Available Not Available Not Available albuterol sulfate HFA 90 mcg/actuati on aerosol inhaler Inhale 1 puff every 4 hours by inhalatio n route as needed. 2024 active Not Available Not Available Not Avai lable fluticasone propionate 50 mcg/actuati on nasal spray,suspe nsion USE 1 SPRAY IN EACH NOSTRIL EVERY DAY active Not Available Not Available No t Available cyclobenzap rine 5 mg tablet Take 1 tablet every day by oral route as needed. 11/11 completed Not Available Not Available Not Available rosuvastati n 10 mg tablet TAKE 1 TABLET BY MOUTH EVERY DAY active Not Available Not Available No t Available rosuvastati n 20 mg tablet TAKE 1 TABLET BY MOUTH EVERY DAY 11/11 completed Not Available Not Available Not Available Anoro Ellipta 62.5 mcg-25 mcg/actuati on powder for inhalation Inhale 1 puff every day by inhalatio n route. 2024 active Not Available Not Available Not Avai lable Vitals Date Recorded Body height Body mass index (BMI) Body weight Oxygen saturation Oxygen saturation in Arterial blood by Pulse oximetry Heart rate [id number]||2025-04-15 17:16:00|PE_ITS|FROHNERTP|Imaging|[id number]|"EXAMINATION: PET skull to mid thigh DATE: 04/14/2025 12:32 INDICATION: Solitary pulmonary nodule TECHNIQUE: Blood glucose level was 97 mg/dL. 10.657 mCi of 18-fluorodeoxyglucose (18-FDG) was adminis tered i.v. Low dose computed tomography (CT) images were acquired from the base of the brain to the p roximal thighs for attenuation correction and anatomic localization. Positron emission tomography (PE T) images were acquired in the same distribution beginning 56 minutes after injection. Images includi ng fused PET/CT images were reconstructed in axial, coronal, and sagittal planes. Automated exposure control technique was employed. The dose-length product was 1027.96mGy-cm. COMPARISON: None FINDINGS: Head/neck: There is symmetric increased activity in the oral cavity, palatine tonsils, laryngeal muscles and ocu lar muscles without CT correlate, likely physiologic. Small focus of mild increased FDG uptake with m aximal SUV of 5.0 which appears to correspond to a subtle approximately 6 mm nodule along the skin herman rface at the chin slightly to the right of midline. No pathologically enlarged cervical lymphadenopat hy or other suspicious foci of increased FDG uptake in the visualized head or neck. Chest: Moderate emphysema. 2.8 x 1.4 cm FDG avid spiculated mass in the left upper lobe with maximal SUV of 15.5 consistent with primary bronchogenic carcinoma. Mild discoid atelectasis right middle lobe. No p leural effusion. Heart size is normal. Atherosclerotic coronary artery calcifications. No pericardial effusion. Thoracic aorta is normal in caliber. There is diffuse mild uptake along the esophagus with out radiologic correlate which could be due to swallowed salivary activity or due to esophagitis rela jordan to reflux with small sliding-type hiatal hernia. No pathologically enlarged or FDG avid thoracic lymphadenopathy. Abdomen/pelvis/proximal thighs: Physiologic renal accumulation and excretion of FDG activity in the kidneys, bladder and along portio ns of ureters. Mild prostatomegaly measuring 3.9 x 3.3 cm. Normal degree and heterogenous pattern of increased uptake throughout the liver without radiologic correlate or dominant FDG avid lesion. The g allbladder, pancreas, spleen and bilateral adrenal glands are normal. Mild uptake scattered throughou t the bowels without radiologic correlate, also likely physiologic. Moderate sigmoid diverticulosis w ithout adjacent inflammatory change to suggest diverticulitis. Small fat-containing left inguinal her orin. No other abnormal foci of increased FDG uptake or pathologically enlarged lymphadenopathy in the abdomen, pelvis or proximal thighs. Musculoskeletal: Severe cervical, thoracic and lumbar spondylosis. No interval change in multiple chronic appearing co mpression fractures in the lumbar and lower thoracic spine. No suspicious lytic, blastic or abnormall y FDG avid bone lesions. IMPRESSION: 1. 2.4 x 1.4 cm probably FDG avid left upper lobe nodule consistent with primary bronchogenic carcino ma. If patient is a biopsy candidate not requiring supplemental oxygen at baseline would recommend CT -guided percutaneous biopsy. 2. No other FDG avid lesions suspicious for metastatic disease. 3. Nonspecific small focus of mild uptake along the skin surface slightly to right of midline at the chin with air appears to be small skin nodule. Correlate with physical exam. Reviewed, dictated and finalized at location A. IMPRESSION: 1. 2.4 x 1.4 cm probably FDG avid left upper lobe nodule consistent with primar y bronchogenic carcinoma. If patient is a biopsy candidate not requiring supple mental oxygen at baseline would recommend CT-guided percutaneous biopsy. 2. No other FDG avid lesions suspicious for metastatic disease. 3. Nonspecific small focus of mild uptake along the skin surface slightly to ri ght of midline at the chin with air appears to be small skin nodule. Correlate with physical exam. "
[2025-04-14 10:59] LABS: Glucose Point of Care 97 mg/dl (65-105)
== END 2025-04-14 09:59 | disposition home or self-care (01) ==
PROVIDERS: PCP Internal Medicine; Visit Provider Internal Medicine Pulmonary Disease
DX: R91.1 Solitary pulmonary nodule (principal)
CPT/HCPCS: 78815; A9552